=== PATIENT | male | born 1990 | race Caucasian/White ===

== ENCOUNTER → 2020-03-04 12:36 | Outpatient (CLI) | payer SELFPAY ==
--- NOTE | 2020-03-04 | DI.MRI.S_ITS ---
PROCEDURE: MR HEAD/BRAIN WO CON INDICATIONS: Unilateral hearing loss TECHNIQUE: Noncontrast axial T1 spin echo, axial T2 fast spin echo, sagittal and axial FLAIR, coronal T2 fast spin echo, axial gradient echo, axial diffusion and ADC through the brain. COMPARISON: None. FINDINGS: Image quality: Excellent. CSF Spaces: Basal cisterns are patent. No extra-axial fluid collections. Ventricles are normal in size and shape. Brain: No intracranial masses or hemorrhage. Nieves/white matter interface is normal. Brainstem appears normal. Diffusion-weighted images demonstrate no acute ischemic insult. No chronic ischemic insults. Normal intravascular flow voids are present. Skull and face: Calvarium has normal marrow signal. Orbits appear normal. Sinuses: Mild bilateral maxillary sinus, left frontal sinus and bilateral ethmoid air cell mucosal thickening. The mastoids are clear. IMPRESSION: 1. No intracranial disease process. 2. No evidence of vestibular schwannoma. 3. No abnormal intracranial mass or mass effect. Dictated by: Kiana Becerra MD, PhD on 03/06/2020 at 9:54 Approved by: Kiana Becerra MD, PhD on 03/06/2020 at 9:58
== END ==
PROVIDERS: Referring Provider Family Medicine; Visit Provider Family Medicine
DX: H91.92 Unspecified hearing loss, left ear (principal)
CPT/HCPCS: 70551

== ENCOUNTER → 2023-04-21 11:12 | Outpatient (CLI) | payer BC, SELFPAY ==
[2023-04-21 19:43] LABS: Alanine Aminotransferase 23 IU/L (<50); Albumin 4.6 g/dL (3.5-5.0); Albumin Globulin Ratio 1.6 (1.0-2.8); Alkaline Phosphatase 60 U/L (38-126); Aspartate Aminotransferase 31 IU/L (17-59); BUN Creatinine Ratio 16.9 (6-22); Bilirubin Total 1.7 mg/dL (0.2-1.3); Blood Urea Nitrogen 15 mg/dL (9-20); Calcium 9.5 mg/dL (8.4-10.2); Carbon Dioxide 30 mmol/L (22-32); Chloride 101 mmol/L (98-107); Estimated Glomerular Filt Rate > 60 mL/min (>60); Globulin 2.8 g/dL (1.7-4.1); Glucose 92 mg/dL (70-100); HEMOLYSIS 18 (0-50); Potassium 4.2 mmol/L (3.4-5.1); Sodium 139 mmol/L (137-145); Total Protein 7.4 g/dL (6.3-8.2)
[2023-04-21 19:45] LABS: Add Manual Diff / Slide Review NO; Basophils Absolute Auto 0 /uL (0-100); Basophils Percent Auto 0.6 % (0-2); Eosinophils Absolute Auto 400 /uL (0-450); Eosinophils Percent Auto 6.5 % (2-4); Hematocrit 47.2 % (41-53); Hemoglobin 16.1 g/dL (13.5-17.5); Lymphocytes Absolute Auto 2100 /uL (1100-4500); Lymphocytes Percent Auto 34.2 % (25-40); Mean Corpuscular HGB Conc 34.1 % (30-36); Mean Corpuscular Hemoglobin 30.2 PG (26-34); Mean Corpuscular Volume 88.6 fL (80-100); Monocytes Absolute Auto 500 /uL (0-900); Monocytes Percent Auto 8.4 % (3-14); Neutrophils Absolute Auto 3000 /uL (1500-7000); Neutrophils Percent Auto 50.3 % (50-75); Platelet Count 235 X10^3/uL (150-400); Red Blood Cell Count 5.33 X10^6/uL (4.5-5.9); Red Cell Distribution Width 12.9 % (11.6-14.8)
[2023-04-25 11:45] LABS: Almond IgE 0.64 kU/L (Class II); Cashew Nut IgE <0.10 kU/L (Class 0); Codfish Allergy IgE < 0.10 kU/L (Class 0); Egg White IgE <0.10 kU/L (Class 0); Hazelnut IgE 0.27 kU/L (Class 0/I); Milk IgE <0.10 kU/L (Class 0); Peanut IgE 2.51 kU/L (Class III); Salmon Allergy IgE < 0.10 kU/L (Class 0); Scallop Allergy IgE 0.88 kU/L (Class II); Sesame seed Allergy IgE 2.37 kU/L (Class III); Shrimp IgE 0.21 kU/L (Class 0/I); Soybean IgE 0.43 kU/L (Class I); Tuna Allergy IgE < 0.10 kU/L (Class 0); Walnut IgE 0.46 kU/L (Class I); Wheat Allergy IgE 3.65 kU/L (Class III)
== END ==
PROVIDERS: PCP Physician Assistant; Visit Provider Physician Assistant
DX: T78.40XA Allergy, unspecified, initial encounter (principal)
CPT/HCPCS: 80053; 85025; 86003

== ENCOUNTER → 2023-04-30 14:05 | Outpatient (CLI) | payer BC, SELFPAY ==
[2023-04-30 19:56] LABS: Bilirubin Direct 0.2 mg/dL (0.0-0.4); Bilirubin Total 0.7 mg/dL (0.2-1.3)
[2023-05-02 20:17] LABS: Deamidated Gliadin Ab IgA 6 units (0-19); Deamidated Gliadin Ab IgG 3 units (0-19); Immunoglobulin A,Qn 155 mg/dL (90-386); t-Transglutaminase IgA <2 U/mL (0-3)
== END ==
PROVIDERS: PCP Physician Assistant; Visit Provider Physician Assistant
DX: R17 Unspecified jaundice (principal); Z91.018 Allergy to other foods
CPT/HCPCS: 82247; 82248; 82784; 83516

== ENCOUNTER → 2024-06-16 09:52 | Outpatient (CLI) | payer BC, SELFPAY ==
[2024-06-16 20:25] LABS: Add Manual Diff / Slide Review NO; Basophils Absolute Auto 100 /uL (0-100); Eosinophils Absolute Auto 200 /uL (0-450); Eosinophils Percent Auto 2.7 % (2-4); Hematocrit 47.7 % (41-53); Lymphocytes Absolute Auto 2200 /uL (1100-4500); Lymphocytes Percent Auto 35.2 % (25-40); Mean Corpuscular HGB Conc 33.6 % (30-36); Mean Corpuscular Hemoglobin 29.8 PG (26-34); Mean Corpuscular Volume 88.4 fL (80-100); Monocytes Absolute Auto 500 /uL (0-900); Monocytes Percent Auto 8.4 % (3-14); Neutrophils Absolute Auto 3300 /uL (1500-7000); Neutrophils Percent Auto 52.7 % (50-75); Platelet Count 247 X10^3/uL (150-400); Red Blood Cell Count 5.39 X10^6/uL (4.5-5.9); Red Cell Distribution Width 13.2 % (11.6-14.8); White Blood Cell Count 6.2 X10^3/uL (4.5-11.0)
[2024-06-16 20:38] LABS: Alanine Aminotransferase 25 IU/L (<50); Albumin 4.3 g/dL (3.5-5.0); Albumin Globulin Ratio 1.5 (1.0-2.8); Alkaline Phosphatase 48 U/L (38-126); Aspartate Aminotransferase 27 IU/L (17-59); BUN Creatinine Ratio 16.2 (6-22); Blood Urea Nitrogen 12 mg/dL (9-20); Calcium 9.9 mg/dL (8.4-10.2); Carbon Dioxide 31 mmol/L (22-32); Chloride 102 mmol/L (98-107); Cholesterol 196 mg/dL (140-199); Estimated Glomerular Filt Rate > 60 mL/min (>60); Globulin 2.9 g/dL (1.7-4.1); Glucose 98 mg/dL (70-100); HDL Cholesterol 52 mg/dL (40-60); HEMOLYSIS 16 (0-50); LDL Cholesterol Calculated 117 mg/dL (<100); Potassium 4.4 mmol/L (3.4-5.1); Sodium 138 mmol/L (137-145); Total Protein 7.2 g/dL (6.3-8.2); Triglycerides 137 mg/dL (35-150)
== END ==
PROVIDERS: PCP Physician Assistant; Visit Provider Physician Assistant
DX: F41.9 Anxiety disorder, unspecified (principal); L50.9 Urticaria, unspecified; Z82.49 Family history of ischemic heart disease and other diseases of the circulatory system; R17 Unspecified jaundice; Z13.6 Encounter for screening for cardiovascular disorders
CPT/HCPCS: 80053; 80061; 84443; 85025

== ENCOUNTER → 2024-07-29 14:36 | Outpatient (CLI) | payer BC, SELFPAY ==
[2024-07-29 19:42] LABS: Add Manual Diff / Slide Review NO; Basophils Absolute Auto 0 /uL (0-100); Basophils Percent Auto 0.5 % (0-2); Eosinophils Absolute Auto 200 /uL (0-450); Eosinophils Percent Auto 3.2 % (2-4); Hematocrit 45.8 % (41-53); Hemoglobin 15.3 g/dL (13.5-17.5); Lymphocytes Absolute Auto 2000 /uL (1100-4500); Lymphocytes Percent Auto 33.7 % (25-40); Mean Corpuscular HGB Conc 33.3 % (30-36); Mean Corpuscular Hemoglobin 29.6 PG (26-34); Mean Corpuscular Volume 88.9 fL (80-100); Monocytes Absolute Auto 400 /uL (0-900); Monocytes Percent Auto 6.9 % (3-14); Neutrophils Absolute Auto 3300 /uL (1500-7000); Neutrophils Percent Auto 55.7 % (50-75); Platelet Count 253 X10^3/uL (150-400); Red Blood Cell Count 5.16 X10^6/uL (4.5-5.9); Red Cell Distribution Width 13.3 % (11.6-14.8)
[2024-08-02 05:41] LABS: Alder IgE 0.16 kU/L (Class 0/I); Alternaria alternata IgE <0.10 kU/L (Class 0); Aspergillus fumigatus IgE <0.10 kU/L (Class 0); Box Elder IgE 0.16 kU/L (Class 0/I); Cat Dander IgE <0.10 kU/L (Class 0); Cladosporium herbarum IgE <0.10 kU/L (Class 0); Cockroach IgE 0.53 kU/L (Class I); Cottonwood IgE <0.10 kU/L (Class 0); D farinae IgE 0.12 kU/L (Class 0/I); D pteronyssinus IgE <0.10 kU/L (Class 0); Dog Dander IgE <0.10 kU/L (Class 0); Elm Tree IgE 0.11 kU/L (Class 0/I); Immunoglobulin E 108 IU/mL (6-495); Mountain Cedar IgE 0.16 kU/L (Class 0/I); Mouse Urine Proteins IgE <0.10 kU/L (Class 0); Nettle IgE 0.12 kU/L (Class 0/I); Oak Tree IgE 0.48 kU/L (Class I); Penicillium chrysogen IgE <0.10 kU/L (Class 0); Pigweed, Common IgE 0.13 kU/L (Class 0/I); Ragweed, Short 1.01 kU/L (Class II); Sheep Sorrel IgE 0.38 kU/L (Class I); Silver Birch IgE 0.17 kU/L (Class 0/I); Timothy Grass IgE 1.85 kU/L (Class III); Walnut Allery IgE 0.15 kU/L (Class 0/I); White ash IgE 0.57 kU/L (Class II)
== END ==
PROVIDERS: PCP Physician Assistant; Visit Provider Physician Assistant Medical
DX: H57.89 Other specified disorders of eye and adnexa (principal); Z87.2 Personal history of diseases of the skin and subcutaneous tissue; J01.90 Acute sinusitis, unspecified; T78.40XA Allergy, unspecified, initial encounter
CPT/HCPCS: 82785; 85025; 86003